=== PATIENT | male | born 1960 | race Caucasian/White ===

== ENCOUNTER → 2018-06-02 12:17 | Outpatient (CLI) | payer BC, SELFPAY ==
--- NOTE | 2018-06-02 | DI.MRI.S_ITS ---
PROCEDURE: MR LUMBAR SPINE WO CON INDICATIONS: LOW BACK PAIN AT MULTIPLE SITES TECHNIQUE: Noncontrast sagittal T1 spin echo and T2 fast echo, sagittal STIR, axial T1 and T2 fast spin echo through the lumbar spine. In cases with scoliosis, additional coronal T2 fast spin echo may be performed. COMPARISON: None. FINDINGS: Image quality: Excellent. Alignment and Curvature: No plain films are available for comparison, for numbering purposes. Thus, for the purposes of this examination, 5 lumbar type vertebral bodies will be presumed, as denoted on the montage panel. This should be confirmed and correlated with plain films, prior to any lumbar spinal intervention. There is loss of normal lumbar lordosis. There is mild grade 1 retrolisthesis of L2 on L3, L4 on L5, and L5 on S1. Bone Marrow: Marrow is of normal overall signal. L2 hemangioma is present. No acute vertebral body compression fractures. There is moderate reactive signal within the endplates adjacent to the the L3-L4 intervertebral disc. Spinal Cord: Conus medullaris terminates at the upper L1 level. Visualized cord demonstrates normal signal and size. Paraspinous Soft Tissues: No paravertebral masses. L1-L2: Mild disc height loss and desiccation. Mild diffuse disc bulge. Mild facet and uncovertebral hypertrophy. Mild epidural lipomatosis. Moderate canal stenosis. Mild bilateral foraminal stenosis. L2-L3: Moderate disc height loss and desiccation. Mild diffuse disc bulge. Moderate facet and ligamentum flavum hypertrophy. Mild epidural lipomatosis. Severe canal stenosis. Mild bilateral foraminal stenosis. L3-L4: Moderate disc height loss and desiccation. Moderate diffuse disc bulge/osteophyte. Mild facet and ligamentum hypertrophy. Mild epidural lipomatosis. Moderate to severe canal stenosis. Moderate foraminal stenosis bilaterally. L4-L5: Mild disc height loss and desiccation. Mild diffuse disc bulge. Mild facet and ligamentum flavum hypertrophy. Mild epidural lipomatosis. Mild canal stenosis. Severe bilateral foraminal stenosis, right greater than left. Mild flattening deformity of the bilateral L4 nerve roots within the neural foramina. L5-S1: Moderate disc height loss. Mild disc desiccation. Mild diffuse disc bulge. Mild facet hypertrophy. Mild canal stenosis. Moderate foraminal stenosis bilaterally. IMPRESSION: 1. 5 lumbar type vertebral bodies were presumed for the current report. Plain films of the lumbar spine are recommended for confirmation, prior to any lumbar spinal intervention. 2. Multilevel degenerative disc and facet disease, as well as ligamentum flavum hypertrophy and epidural lipomatosis. 3. Multilevel canal stenoses, worst at L2-L3 and L3-L4 as described above. 4. Multilevel foraminal stenoses, worst at L4-L5 bilaterally, where there is bilateral intraforaminal L4 nerve root flattening. Recommend correlation with clinical symptoms to ascertain relevance of this finding. Dictated by: Skye Diallo M.D. on 06/02/2018 at 13:52 Approved by: Skye Diallo M.D. on 06/02/2018 at 13:56
== END ==
PROVIDERS: Visit Provider Physical Medicine & Rehabilitation
DX: M51.36 Other intervertebral disc degeneration, lumbar region (principal); M51.37 Other intervertebral disc degeneration, lumbosacral region; M48.061 Spinal stenosis, lumbar region without neurogenic claudication; M48.07 Spinal stenosis, lumbosacral region; M54.5 Low back pain; E88.2 Lipomatosis, not elsewhere classified
CPT/HCPCS: 72148

== ENCOUNTER → 2019-06-21 13:48 | Outpatient (CLI) | payer BC, SELFPAY ==
[2019-06-21 14:43] LABS: Add Manual Diff / Slide Review NO; Basophils Absolute Auto 0 /uL (0-100); Basophils Percent Auto 0.8 % (0-2); Eosinophils Absolute Auto 100 /uL (0-450); Eosinophils Percent Auto 2.4 % (2-4); Hematocrit 43.4 % (41-53); Lymphocytes Absolute Auto 1300 /uL (1100-4500); Lymphocytes Percent Auto 31.7 % (25-40); Mean Corpuscular HGB Conc 34.5 % (30-36); Mean Corpuscular Hemoglobin 31.8 PG (26-34); Mean Corpuscular Volume 92.2 fL (80-100); Monocytes Absolute Auto 500 /uL (0-900); Monocytes Percent Auto 11.7 % (3-14); Neutrophils Absolute Auto 2200 /uL (1500-7000); Neutrophils Percent Auto 53.4 % (50-75); Platelet Count 174 X10^3/uL (150-400); Red Blood Cell Count 4.71 X10^6/uL (4.5-5.9); Red Cell Distribution Width 12.9 % (11.6-14.8); White Blood Cell Count 4.2 X10^3/uL (4.5-11.0)
[2019-06-21 15:30] LABS: Alanine Aminotransferase 18 IU/L (<50); Albumin 4.1 g/dL (3.5-5.0); Albumin Globulin Ratio 1.9 (1.0-2.8); Alkaline Phosphatase 89 U/L (38-126); Aspartate Aminotransferase 20 IU/L (17-59); Bilirubin Total 0.7 mg/dL (0.2-1.3); Bilirubin Unconjugated 0.5 mg/dL (0.0-1.1); Globulin 2.2 g/dL (1.7-4.1); HEMOLYSIS < 15 (0-50); Total Protein 6.3 g/dL (6.3-8.2)
== END ==
PROVIDERS: Visit Provider Podiatrist
DX: B35.1 Tinea unguium (principal)
CPT/HCPCS: 36415; 80076; 85025

== ENCOUNTER → 2021-09-12 11:21 | Outpatient (CLI) | payer BC, SELFPAY ==
--- NOTE | 2021-09-12 11:21 | DI.MRI.S_ITS ---
PROCEDURE: MR LUMBAR SPINE WO CON INDICATIONS: Spinal stenosis, lumbar region without neurogenic TECHNIQUE: Noncontrast sagittal T1 spin echo and T2 fast echo, sagittal STIR, axial T1 and T2 fast spin echo through the lumbar spine. In cases with scoliosis, additional coronal T2 fast spin echo may be performed. COMPARISON: [facility], MR, MR LUMBAR SPINE WO CON, 06/02/2018, 12:49. FINDINGS: Image quality: Excellent. Alignment and Curvature: There is normal bony alignment. Bone Marrow: Modic type 1 edematous endplate changes noted at L1-2, new from the prior exam. L1 Schmorl's node associated with the inferior endplate. Chronic endplate changes noted at L3-4, stable. Spinal Cord: Conus medullaris terminates at the L1 level. Visualized cord demonstrates normal signal and size. Paraspinous Soft Tissues: No paravertebral masses. T12-L1: Normal appearance. L1-L2: Circumferential disc bulge associated with mild central stenosis. Moderate bilateral foraminal stenosis L2-L3: Circumferential disc bulge and hypertrophic ligamentum flavum results in moderate central and mild bilateral foraminal stenosis. L3-L4: Disc space narrowing with circumferential disc bulge and hypertrophic facet joints results in effacement of the right lateral recess. Moderate central stenosis with moderate bilateral foraminal stenosis, left greater than right L4-L5: Mild disc space narrowing with circumferential disc bulge and hypertrophic facet joints present. Mild central and moderate to severe bilateral foraminal stenosis L5-S1: Circumferential disc bulge and hypertrophic facet joints present. Moderate left and right foraminal stenosis present. No central stenosis. IMPRESSION: Multilevel degenerative disc disease and arthropathy results in varying degrees of central and foraminal stenosis including moderate central stenosis at L2-3 and L3-4. Modic type 1 degenerative endplate changes at L1-2 are new from the prior Approved by: Alex Blount M.D. on 09/13/2021 at 9:07
== END ==
PROVIDERS: PCP Internal Medicine; Referring Provider Physical Medicine & Rehabilitation; Visit Provider Physical Medicine & Rehabilitation
DX: M51.36 Other intervertebral disc degeneration, lumbar region (principal); M47.816 Spondylosis without myelopathy or radiculopathy, lumbar region; M48.061 Spinal stenosis, lumbar region without neurogenic claudication
CPT/HCPCS: 72148

== ENCOUNTER → 2023-12-29 10:06 | Outpatient (CLI) | payer MEDICARE, OTHER, SELFPAY ==
--- NOTE | 2023-12-29 10:08 | DI.RAD.S_ITS ---
PROCEDURE: XR CERVICAL SPINE 2V OR 3V INDICATIONS: b/l arm numbness x 4 weeks TECHNIQUE: 3 view(s) of the cervical spine were acquired. COMPARISON: None. FINDINGS: Bones: No fractures or dislocations to the T1 level. The lateral masses of C1 appear intact on the odontoid view. No suspicious bony lesions. Straightening of cervical lordosis which may be due to patient positioning and/or concurrent muscle spasms. Moderate multilevel cervical spondylitic change. Soft tissues: No prevertebral soft tissue swelling. IMPRESSION: Cervical spine without acute fracture. Moderate multilevel cervical spondylosis. Mild straightening of normal cervical lordosis likely related to positioning and/or concurrent muscle spasms. Dictated by: Quirino Dos Santos M.D. on 12/29/2023 at 17:10 Approved by: Quirino Dos Santos M.D. on 12/29/2023 at 17:11
[2023-12-29 11:03] LABS: Add Manual Diff / Slide Review NO; Basophils Absolute Auto 0 /uL (0-100); Basophils Percent Auto 1.1 % (0-2); Eosinophils Absolute Auto 100 /uL (0-450); Eosinophils Percent Auto 4.1 % (2-4); Hematocrit 41.9 % (41-53); Hemoglobin 14.3 g/dL (13.5-17.5); Lymphocytes Absolute Auto 1100 /uL (1100-4500); Lymphocytes Percent Auto 32.8 % (25-40); Mean Corpuscular HGB Conc 34.1 % (30-36); Mean Corpuscular Hemoglobin 31.4 PG (26-34); Monocytes Absolute Auto 400 /uL (0-900); Monocytes Percent Auto 11.4 % (3-14); Neutrophils Absolute Auto 1700 /uL (1500-7000); Neutrophils Percent Auto 50.6 % (50-75); Platelet Count 172 X10^3/uL (150-400); Red Blood Cell Count 4.55 X10^6/uL (4.5-5.9); White Blood Cell Count 3.4 X10^3/uL (4.5-11.0)
[2023-12-29 11:28] LABS: Alanine Aminotransferase 33 IU/L (<50); Albumin 4.1 g/dL (3.5-5.0); Albumin Globulin Ratio 1.9 (1.0-2.8); Alkaline Phosphatase 89 U/L (38-126); Aspartate Aminotransferase 31 IU/L (17-59); BUN Creatinine Ratio 15.7 (6-22); Bilirubin Total 0.9 mg/dL (0.2-1.3); Blood Urea Nitrogen 14 mg/dL (9-20); Calcium 8.9 mg/dL (8.4-10.2); Carbon Dioxide 30 mmol/L (22-32); Chloride 108 mmol/L (98-107); Cholesterol 165 mg/dL (140-199); Estimated Glomerular Filt Rate > 60 mL/min (>60); Globulin 2.2 g/dL (1.7-4.1); Glucose 96 mg/dL (80-110); HDL Cholesterol 49 mg/dL (40-60); HEMOLYSIS < 15 (0-50); LDL Cholesterol Calculated 72 mg/dL (<100); Potassium 4.3 mmol/L (3.4-5.1); Sodium 141 mmol/L (137-145); Total Protein 6.3 g/dL (6.3-8.2); Triglycerides 221 mg/dL (35-150)
[2023-12-29 11:56] LABS: Prostate Specific Antigen Scrn 0.537 ng/mL (0.1-4.0)
[2023-12-29 11:57] LABS: TSH w/ Reflex to FT4 1.87 uIU/mL (0.47-4.68)
[2023-12-29 12:14] LABS: Vitamin B12 378 pg/mL (239-931)
== END ==
PROVIDERS: PCP Internal Medicine; Referring Provider Physician Assistant; Visit Provider Physician Assistant
DX: M47.812 Spondylosis without myelopathy or radiculopathy, cervical region (principal); G62.9 Polyneuropathy, unspecified; G47.19 Other hypersomnia; E78.2 Mixed hyperlipidemia; Z12.5 Encounter for screening for malignant neoplasm of prostate
CPT/HCPCS: 36415; 72040; 80053; 80061; 82607; 84443; 85025; G0103

== ENCOUNTER → 2024-02-21 13:38 | Outpatient (CLI) | payer MEDICARE, OTHER, SELFPAY ==
--- NOTE | 2024-02-21 13:39 | DI.RAD.S_ITS ---
PROCEDURE: XR CHEST 2V INDICATIONS: recent pneumonia 02/11, continues coughing TECHNIQUE: 2 views of the chest were acquired. COMPARISON: None. FINDINGS: Surgical changes and devices: None. Lungs and pleura: There bibasilar hazy opacities. There is peribronchial cuffing. No pleural effusions or pneumothorax. Mediastinum: Mediastinal contours are normal. Heart size is normal. Bones and chest wall: No suspicious bony abnormalities. Soft tissues appear unremarkable. IMPRESSION: 1. There are bibasilar hazy opacities. Differentials include infiltrates versus atelectasis. 2. There is peribronchial cuffing. This finding can be seen in small airways disease such as bronchiolitis or asthma. Dictated by: Chauncey Hood M.D. on 02/21/2024 at 15:33 Approved by: Chauncey Hood M.D. on 02/21/2024 at 15:38
== END ==
PROVIDERS: PCP Internal Medicine; Referring Provider Physician Assistant; Visit Provider Physician Assistant
DX: J18.9 Pneumonia, unspecified organism (principal)
CPT/HCPCS: 71046

== ENCOUNTER 2024-07-17 12:56 | Emergency (ER) | payer MEDICARE, OTHER, SELFPAY ==
[2024-07-17] VITALS (22 sets, daily range): BP systolic 135–169; BP diastolic 76–94; PULSE 51–58; RESP 16–18; TEMP 36.2; O2SAT 91–99; BMI 34.9
[2024-07-17 14:01] LABS: Add Manual Diff / Slide Review NO; Basophils Absolute Auto 0 /uL (0-100); Basophils Percent Auto 0.3 % (0-2); Eosinophils Absolute Auto 0 /uL (0-450); Eosinophils Percent Auto 0.6 % (2-4); Hematocrit 43.8 % (41-53); Hemoglobin 14.8 g/dL (13.5-17.5); Lymphocytes Absolute Auto 800 /uL (1100-4500); Lymphocytes Percent Auto 11.1 % (25-40); Mean Corpuscular HGB Conc 33.7 % (30-36); Mean Corpuscular Hemoglobin 31.4 PG (26-34); Mean Corpuscular Volume 93.1 fL (80-100); Monocytes Absolute Auto 400 /uL (0-900); Monocytes Percent Auto 6.1 % (3-14); Neutrophils Absolute Auto 5700 /uL (1500-7000); Neutrophils Percent Auto 81.9 % (50-75); Platelet Count 160 X10^3/uL (150-400); Red Cell Distribution Width 13.2 % (11.6-14.8)
[2024-07-17 14:15] LABS: Alanine Aminotransferase 22 IU/L (<50); Albumin 4.1 g/dL (3.5-5.0); Albumin Globulin Ratio 1.6 (1.0-2.8); Alkaline Phosphatase 89 U/L (38-126); Aspartate Aminotransferase 26 IU/L (17-59); BUN Creatinine Ratio 18.7 (6-22); Bilirubin Total 0.8 mg/dL (0.2-1.3); Blood Urea Nitrogen 17 mg/dL (9-20); Calcium 9.1 mg/dL (8.4-10.2); Carbon Dioxide 29 mmol/L (22-32); Chloride 106 mmol/L (98-107); Estimated Glomerular Filt Rate > 60 mL/min (>60); Globulin 2.5 g/dL (1.7-4.1); Glucose 110 mg/dL (80-110); HEMOLYSIS < 15 (0-50); Lipase 32 U/L (23-300); Potassium 4.2 mmol/L (3.4-5.1); Sodium 139 mmol/L (137-145); Total Protein 6.6 g/dL (6.3-8.2)
[2024-07-17] MEDS: ONDANSETRON 4 MG/2 ML INJ IV ×2 (14:15→16:29)
--- NOTE | 2024-07-17 14:32 | DI.MRI.S_ITS ---
PROCEDURE: MR HEAD/BRAIN WO/W CON INDICATIONS: headache w/ neuro changes TECHNIQUE: Noncontrast axial T1 spin echo, axial T2 fast spin echo, sagittal and axial FLAIR, coronal T2 fast spin echo, axial gradient echo, axial diffusion and ADC through the brain. After the administration of contrast, axial and coronal and sagittal 3D VIBE or T1 spin echo with fat saturation through the brain. COMPARISON: None. FINDINGS: Image quality: Excellent. CSF Spaces: Basal cisterns are patent. No extra-axial fluid collections. Ventricles demonstrate effacement of the frontal horns as well as mild effacement of the posterior right temporal horn. Brain: There is a heterogeneously enhancing mass within the right frontal lobe measuring 5.2 x 4.9 x 4.1 cm. Prominent vasogenic edema is present. It is causing right to left midline shift measuring 9 mm. Areas hypointensity on gradient sequence are present. The brainstem appears normal. Diffusion-weighted images demonstrate no acute infarct. No chronic ischemic insults. Normal intravascular flow voids are present. Skull and face: Calvarial marrow is normal in signal. Orbits appear normal. Sinuses: Sinuses and mastoids appear clear. IMPRESSION: Prominent appearing right frontal mass with vasogenic edema and midline shift demonstrating contrast enhancement hemosiderin/blood product deposition highly concerning for malignancy such as GBM. Dictated by: Barbara Vega M.D. on 07/17/2024 at 15:17 Approved by: Barbara Vega M.D. on 07/17/2024 at 15:20
[2024-07-17] MEDS: LORazepam 2 MG/ML INJ 1 MG IV (14:41)
--- NOTE | 2024-07-17 14:42 | PC.NURSE ---
In need of urgent CT, unavailable at this facility. MRI ordered. Medicated for nausea / anxiety
--- NOTE | 2024-07-17 15:35 | EKG_ITS ---
[place] [id number] [place] [id number] Test Date: 2024-07-17 Pat Name: Dani Becerra Department: [facility] Room: Gender: Male [employer]: HOSSEIN : 1960 Requested By: Order Number: [id number] Reading MD: Eron Reynolds Measurements Intervals [place] Rate: 52 P: 36 NV: 186 QRS: 1 QRSD: 94 T: 13 QT: 448 QTc: 416 Interpretive Statements Sinus bradycardia Septal infarct , age undetermined Electronically Signed On 07-17-2024 19:43:51 PST by Eron Reynolds
--- NOTE | 2024-07-17 16:18 | ED_ITS ---
HPI - Headache <Justin Luevano MD - Last Filed: 07/27/24 12:52> General Chief Complaint: Headache Stated Complaint: neuro issues, confussion, sent by [facility] [place] Time Seen by Provider: 07/17/24 16:09 Mode of arrival: Family Vehicle History of Present Illness HPI Narrative: Patient here with and daughter. Complaints 2 weeks of headache nausea and feeling off balance. Nausea but no vomiting. No recent illness. No fever chills cough cold or congestion. Has had episodes of feeling confused. No seizures. No urinary bladder incontinence. Related Data Home Medications Medication Instructions Recorded Confirmed cyclobenzaprine 10 mg tablet 10 mg PO TID PRN 04/09/21 06/13/24 pregabalin 75 mg capsule 75 mg PO BID 04/09/21 06/13/24 cetirizine 10 mg capsule (Zyrtec) 10 mg PO DAILY PRN 06/13/24 06/13/24 fluticasone propionate 50 1 spray intranasal DAILY 06/13/24 06/13/24 mcg/actuation nasal spray,suspension (Flonase Allergy Relief) probiotic PO DAILY 06/13/24 Previous Rx's Medication Instructions Recorded atorvastatin 20 mg tablet 20 mg PO DAILY #90 tabs 04/06/24 Allergies Allergy/AdvReac Type Severity Reaction Status Date / Time No Known Drug Allergies Allergy Verified 07/17/24 13:41 Review of Systems <Justin Luevano MD - Last Filed: 07/27/24 12:52> Review of Systems Narrative: GENERAL: Negative chills, fatigue, malaise, fever, sweats. HEENT: Negative sinus pain, ear pain, sore throat RESPIRATORY: Negative dyspnea, cough CARDIOVASCULAR: Negative chest pain, palpitations GASTROINTESTINAL: Negative nausea, vomiting, abdominal pain : Negative dysuria, frequency, hematuria MUSCULOSKELETAL: Negative muscle or bony pain SKIN: Negative rash, skin lesions NEUROLOGIC: Negative weakness, numbness, positive headache, positive dizziness ROS Unobtainable: All systems reviewed & are unremarkable except as noted in HPI and below Patient History <Justin Luevano MD - Last Filed: 07/27/24 12:52> Medical History Osteoarthritis of right hip Hyperplastic polyp of large intestine (01/13/16) Mixed hyperlipidemia Plantar warts (~1964) Sleep apnea Allergies Chronic back pain (~1973) Kidney stones (~1991) Surgical History S/P T&A (status post tonsillectomy and adenoidectomy) History of repair of anterior cruciate ligament of left knee (~2005) Social History Smoking Status: Never smoker Smoking Status: Never smoker Exam <Justin Luevano MD - Last Filed: 07/27/24 12:52> Narrative Exam Narrative: GENERAL: in no distress, not toxic not dyspneic HEAD: Normocephalic. EYES: Pupils equal round no papilledema no photophobia ENT: Mucous membranes moist. NECK: Trachea midline. CARDIOVASCULAR: Regular rate and rhythm RESPIRATORY: Clear to auscultation. Breath sounds equal bilaterally. No wheezes, rales, or rhonchi. GASTROINTESTINAL: Abdomen soft, non-tender EXTREMITIES: No gross deformities. BACK: No flank tenderness. NEURO: AOx4. 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 SKIN: Warm and dry PSYCH: Not anxious, is cooperative Initial Vital Signs Initial Vital Signs: Vital Signs Temperature 97.1 F L 07/17/24 13:38 Pulse Rate 56 L 07/17/24 13:38 Respiratory Rate 16 07/17/24 13:38 Blood Pressure 169/94 H 07/17/24 13:38 Pulse Oximetry 99 07/17/24 13:38 Oxygen Delivery Method Room Air 07/17/24 13:38 <Di Pearl MD - Last Filed: 07/18/24 06:15> Initial Vital Signs Initial Vital Signs: Vital Signs Temperature 97.1 F L 07/17/24 13:38 Pulse Rate 56 L 07/17/24 13:38 Respiratory Rate 16 07/17/24 13:38 Blood Pressure 169/94 H 07/17/24 13:38 Pulse Oximetry 99 07/17/24 13:38 Oxygen Delivery Method Room Air 07/17/24 13:38 <Dani Brooke DO - Last Filed: 07/19/24 17:12> Initial Vital Signs Initial Vital Signs: Vital Signs Temperature 97.1 F L 07/17/24 13:38 Pulse Rate 56 L 07/17/24 13:38 Respiratory Rate 16 07/17/24 13:38 Blood Pressure 169/94 H 07/17/24 13:38 Pulse Oximetry 99 07/17/24 13:38 Oxygen Delivery Method Room Air 07/17/24 13:38 Course <Justin Luevano MD - Last Filed: 07/27/24 12:52> Orders Ordered: Discontinued Medications Atorvastatin Calcium (Atorvastatin 20 Mg Tablet) 20 mg PO DAILY [facility] Last Admin: 07/19/24 08:17 Dose: 20 mg Documented By: Admin: 07/18/24 10:32 Dose: 20 mg Documented By: DWIGHT Dexamethasone (Dexamethasone 10 Mg/Ml Vial) 8 mg IV BID [facility] Last Admin: 07/19/24 08:35 Dose: 8 mg Documented By: Admin: 07/18/24 22:00 Dose: 8 mg Documented By: Admin: 07/18/24 08:18 Dose: 8 mg Documented By: Admin: 07/17/24 20:34 Dose: 8 mg Documented By: JIN Levetiracetam 1,000 mg/ Sodium (Chloride) 110 mls @ 440 mls/hr IV NOW ONE Stop: 07/17/24 16:19 Last Infusion: 07/17/24 16:59 Dose: Infused Documented By: Admin: 07/17/24 16:33 Dose: 440 mls/hr Documented By: JIN Levetiracetam 1,000 mg/ Sodium (Chloride) 110 mls @ 440 mls/hr IV NOW ONE Stop: 07/18/24 06:16 Last Infusion: 07/18/24 07:06 Dose: Infused Documented By: Admin: 07/18/24 06:34 Dose: 440 mls/hr Documented By: HAFSA(2) Levetiracetam 1,000 mg/ Sodium (Chloride) 110 mls @ 440 mls/hr IV Q12H [facility] Last Infusion: 07/19/24 12:47 Dose: Infused Documented By: Admin: 07/19/24 11:46 Dose: 440 mls/hr Documented By: Infusion: 07/19/24 00:56 Dose: Infused Documented By: HAFSA(2) Admin: 07/19/24 00:24 Dose: 440 mls/hr Documented By: Lorazepam (Lorazepam 2 Mg/Ml Inj) 1 mg IV NOW ONE Stop: 07/17/24 14:38 Last Admin: 07/17/24 14:41 Dose: 1 mg Documented By: NÉSTOR Morphine Sulfate (Morphine 4 Mg/Ml Inj) 4 mg IV NOW ONE Stop: 07/17/24 16:19 Last Admin: 07/17/24 16:28 Dose: 4 mg Documented By: JIN Morphine Sulfate (Morphine 4 Mg/Ml Inj) 4 mg IV NOW ONE Stop: 07/17/24 18:25 Last Admin: 07/17/24 18:44 Dose: 4 mg Documented By: MONSE Morphine Sulfate (Morphine 2 Mg/Ml Inj) 2 mg IV Q4HR PRN PRN Reason: Pain, Moderate (4-6) Last Admin: 07/19/24 18:03 Dose: 2 mg Documented By: Admin: 07/18/24 12:22 Dose: 2 mg Documented By: Admin: 07/18/24 06:34 Dose: 2 mg Documented By: HAFSA(2) Admin: 07/18/24 00:49 Dose: 2 mg Documented By: DARWIN Naloxone HCl (Naloxone 0.4 Mg/Ml Vial) 0.2 mg IV Q2MIN PRN PRN Reason: Opiate Reversal Ondansetron HCl (Ondansetron 4 Mg/2 Ml Inj) 4 mg IV NOW PRN PRN Reason: Nausea And Vomiting Last Admin: 07/19/24 12:16 Dose: 4 mg Documented By: Admin: 07/17/24 14:15 Dose: 4 mg Documented By: JIN Ondansetron HCl (Ondansetron 4 Mg Odt) 4 mg PO NOW PRN PRN Reason: Nausea And Vomiting Ondansetron HCl (Ondansetron 4 Mg/2 Ml Inj) 4 mg IV NOW ONE Stop: 07/17/24 16:19 Last Admin: 07/17/24 16:29 Dose: 4 mg Documented By: JIN Ondansetron HCl (Ondansetron 4 Mg/2 Ml Inj) 4 mg IV Q6HR [facility] Last Admin: 07/19/24 18:03 Dose: 4 mg Documented By: Admin: 07/19/24 13:08 Dose: Not Given Documented By: Admin: 07/19/24 07:02 Dose: Not Given Documented By: Admin: 07/19/24 00:00 Dose: Not Given Documented By: Admin: 07/18/24 20:00 Dose: Not Given Documented By: Admin: 07/18/24 12:20 Dose: 4 mg Documented By: Admin: 07/18/24 06:34 Dose: 4 mg Documented By: HAFSA(2) Admin: 07/18/24 00:09 Dose: 4 mg Documented By: DARWIN Pantoprazole Sodium (Pantoprazole 40 Mg Vial) 40 mg IV DAILY [facility] Last Admin: 07/19/24 08:34 Dose: 40 mg Documented By: Admin: 07/18/24 08:18 Dose: 40 mg Documented By: DWIGHT Pregabalin (Pregabalin 75 Mg Capsule) 75 mg PO DAILY [facility] Last Admin: 07/19/24 08:17 Dose: 75 mg Documented By: Admin: 07/18/24 10:31 Dose: 75 mg Documented By: DWIGHT Prochlorperazine (Prochlorperazine 10 Mg/2 Ml Vial) 10 mg IV NOW ONE Stop: 07/17/24 18:25 Last Admin: 07/17/24 18:44 Dose: 10 mg Documented By: MONSE Vital Signs Vital signs: Vital Signs - 8 hr 07/19/24 09:40 07/19/24 16:35 Temperature 97.6 F Pulse Rate 51 L 54 L Respiratory Rate 16 Blood Pressure 121/68 120/79 Pulse Oximetry 96 97 Oxygen Delivery Method Room Air <Di Pearl MD - Last Filed: 07/18/24 06:15> Orders Ordered: Discontinued Medications Atorvastatin Calcium (Atorvastatin 20 Mg Tablet) 20 mg PO DAILY [facility] Last Admin: 07/19/24 08:17 Dose: 20 mg Documented By: Admin: 07/18/24 10:32 Dose: 20 mg Documented By: DWIGHT Dexamethasone (Dexamethasone 10 Mg/Ml Vial) 8 mg IV BID [facility] Last Admin: 07/19/24 08:35 Dose: 8 mg Documented By: Admin: 07/18/24 22:00 Dose: 8 mg Documented By: Admin: 07/18/24 08:18 Dose: 8 mg Documented By: Admin: 07/17/24 20:34 Dose: 8 mg Documented By: JIN Levetiracetam 1,000 mg/ Sodium (Chloride) 110 mls @ 440 mls/hr IV NOW ONE Stop: 07/17/24 16:19 Last Infusion: 07/17/24 16:59 Dose: Infused Documented By: Admin: 07/17/24 16:33 Dose: 440 mls/hr Documented By: JIN Levetiracetam 1,000 mg/ Sodium (Chloride) 110 mls @ 440 mls/hr IV NOW ONE Stop: 07/18/24 06:16 Last Infusion: 07/18/24 07:06 Dose: Infused Documented By: Admin: 07/18/24 06:34 Dose: 440 mls/hr Documented By: HAFSA(2) Levetiracetam 1,000 mg/ Sodium (Chloride) 110 mls @ 440 mls/hr IV Q12H [facility] Last Infusion: 07/19/24 12:47 Dose: Infused Documented By: Admin: 07/19/24 11:46 Dose: 440 mls/hr Documented By: Infusion: 07/19/24 00:56 Dose: Infused Documented By: HAFSA(2) Admin: 07/19/24 00:24 Dose: 440 mls/hr Documented By: Lorazepam (Lorazepam 2 Mg/Ml Inj) 1 mg IV NOW ONE Stop: 07/17/24 14:38 Last Admin: 07/17/24 14:41 Dose: 1 mg Documented By: NÉSTOR Morphine Sulfate (Morphine 4 Mg/Ml Inj) 4 mg IV NOW ONE Stop: 07/17/24 16:19 Last Admin: 07/17/24 16:28 Dose: 4 mg Documented By: JIN Morphine Sulfate (Morphine 4 Mg/Ml Inj) 4 mg IV NOW ONE Stop: 07/17/24 18:25 Last Admin: 07/17/24 18:44 Dose: 4 mg Documented By: MONSE Morphine Sulfate (Morphine 2 Mg/Ml Inj) 2 mg IV Q4HR PRN PRN Reason: Pain, Moderate (4-6) Last Admin: 07/19/24 18:03 Dose: 2 mg Documented By: Admin: 07/18/24 12:22 Dose: 2 mg Documented By: Admin: 07/18/24 06:34 Dose: 2 mg Documented By: HAFSA(2) Admin: 07/18/24 00:49 Dose: 2 mg Documented By: DARWIN Naloxone HCl (Naloxone 0.4 Mg/Ml Vial) 0.2 mg IV Q2MIN PRN PRN Reason: Opiate Reversal Ondansetron HCl (Ondansetron 4 Mg/2 Ml Inj) 4 mg IV NOW PRN PRN Reason: Nausea And Vomiting Last Admin: 07/19/24 12:16 Dose: 4 mg Documented By: Admin: 07/17/24 14:15 Dose: 4 mg Documented By: JIN Ondansetron HCl (Ondansetron 4 Mg Odt) 4 mg PO NOW PRN PRN Reason: Nausea And Vomiting Ondansetron HCl (Ondansetron 4 Mg/2 Ml Inj) 4 mg IV NOW ONE Stop: 07/17/24 16:19 Last Admin: 07/17/24 16:29 Dose: 4 mg Documented By: JIN Ondansetron HCl (Ondansetron 4 Mg/2 Ml Inj) 4 mg IV Q6HR [facility] Last Admin: 07/19/24 18:03 Dose: 4 mg Documented By: Admin: 07/19/24 13:08 Dose: Not Given Documented By: Admin: 07/19/24 07:02 Dose: Not Given Documented By: Admin: 07/19/24 00:00 Dose: Not Given Documented By: Admin: 07/18/24 20:00 Dose: Not Given Documented By: Admin: 07/18/24 12:20 Dose: 4 mg Documented By: Admin: 07/18/24 06:34 Dose: 4 mg Documented By: HAFSA(2) Admin: 07/18/24 00:09 Dose: 4 mg Documented By: DARWIN Pantoprazole Sodium (Pantoprazole 40 Mg Vial) 40 mg IV DAILY [facility] Last Admin: 07/19/24 08:34 Dose: 40 mg Documented By: Admin: 07/18/24 08:18 Dose: 40 mg Documented By: DWIGHT Pregabalin (Pregabalin 75 Mg Capsule) 75 mg PO DAILY [facility] Last Admin: 07/19/24 08:17 Dose: 75 mg Documented By: Admin: 07/18/24 10:31 Dose: 75 mg Documented By: DWIGHT Prochlorperazine (Prochlorperazine 10 Mg/2 Ml Vial) 10 mg IV NOW ONE Stop: 07/17/24 18:25 Last Admin: 07/17/24 18:44 Dose: 10 mg Documented By: MONSE Vital Signs Vital signs: Vital Signs - 8 hr 07/19/24 09:40 07/19/24 16:35 Temperature 97.6 F Pulse Rate 51 L 54 L Respiratory Rate 16 Blood Pressure 121/68 120/79 Pulse Oximetry 96 97 Oxygen Delivery Method Room Air <Dani Brooke, DO - Last Filed: 07/19/24 17:12> Orders Ordered: Discontinued Medications Atorvastatin Calcium (Atorvastatin 20 Mg Tablet) 20 mg PO DAILY [facility] Last Admin: 07/19/24 08:17 Dose: 20 mg Documented By: Admin: 07/18/24 10:32 Dose: 20 mg Documented By: DWIGHT Dexamethasone (Dexamethasone 10 Mg/Ml Vial) 8 mg IV BID [facility] Last Admin: 07/19/24 08:35 Dose: 8 mg Documented By: Admin: 07/18/24 22:00 Dose: 8 mg Documented By: Admin: 07/18/24 08:18 Dose: 8 mg Documented By: Admin: 07/17/24 20:34 Dose: 8 mg Documented By: JIN Levetiracetam 1,000 mg/ Sodium (Chloride) 110 mls @ 440 mls/hr IV NOW ONE Stop: 07/17/24 16:19 Last Infusion: 07/17/24 16:59 Dose: Infused Documented By: Admin: 07/17/24 16:33 Dose: 440 mls/hr Documented By: JIN Levetiracetam 1,000 mg/ Sodium (Chloride) 110 mls @ 440 mls/hr IV NOW ONE Stop: 07/18/24 06:16 Last Infusion: 07/18/24 07:06 Dose: Infused Documented By: Admin: 07/18/24 06:34 Dose: 440 mls/hr Documented By: HAFSA(2) Levetiracetam 1,000 mg/ Sodium (Chloride) 110 mls @ 440 mls/hr IV Q12H [facility] Last Infusion: 07/19/24 12:47 Dose: Infused Documented By: Admin: 07/19/24 11:46 Dose: 440 mls/hr Documented By: Infusion: 07/19/24 00:56 Dose: Infused Documented By: HAFSA(2) Admin: 07/19/24 00:24 Dose: 440 mls/hr Documented By: Lorazepam (Lorazepam 2 Mg/Ml Inj) 1 mg IV NOW ONE Stop: 07/17/24 14:38 Last Admin: 07/17/24 14:41 Dose: 1 mg Documented By: NÉSTOR Morphine Sulfate (Morphine 4 Mg/Ml Inj) 4 mg IV NOW ONE Stop: 07/17/24 16:19 Last Admin: 07/17/24 16:28 Dose: 4 mg Documented By: JIN Morphine Sulfate (Morphine 4 Mg/Ml Inj) 4 mg IV NOW ONE Stop: 07/17/24 18:25 Last Admin: 07/17/24 18:44 Dose: 4 mg Documented By: MONSE Morphine Sulfate (Morphine 2 Mg/Ml Inj) 2 mg IV Q4HR PRN PRN Reason: Pain, Moderate (4-6) Last Admin: 07/19/24 18:03 Dose: 2 mg Documented By: Admin: 07/18/24 12:22 Dose: 2 mg Documented By: Admin: 07/18/24 06:34 Dose: 2 mg Documented By: HAFSA(2) Admin: 07/18/24 00:49 Dose: 2 mg Documented By: DARWIN Naloxone HCl (Naloxone 0.4 Mg/Ml Vial) 0.2 mg IV Q2MIN PRN PRN Reason: Opiate Reversal Ondansetron HCl (Ondansetron 4 Mg/2 Ml Inj) 4 mg IV NOW PRN PRN Reason: Nausea And Vomiting Last Admin: 07/19/24 12:16 Dose: 4 mg Documented By: Admin: 07/17/24 14:15 Dose: 4 mg Documented By: JIN Ondansetron HCl (Ondansetron 4 Mg Odt) 4 mg PO NOW PRN PRN Reason: Nausea And Vomiting Ondansetron HCl (Ondansetron 4 Mg/2 Ml Inj) 4 mg IV NOW ONE Stop: 07/17/24 16:19 Last Admin: 07/17/24 16:29 Dose: 4 mg Documented By: JIN Ondansetron HCl (Ondansetron 4 Mg/2 Ml Inj) 4 mg IV Q6HR [facility] Last Admin: 07/19/24 18:03 Dose: 4 mg Documented By: Admin: 07/19/24 13:08 Dose: Not Given Documented By: Admin: 07/19/24 07:02 Dose: Not Given Documented By: Admin: 07/19/24 00:00 Dose: Not Given Documented By: Admin: 07/18/24 20:00 Dose: Not Given Documented By: Admin: 07/18/24 12:20 Dose: 4 mg Documented By: Admin: 07/18/24 06:34 Dose: 4 mg Documented By: HAFSA(2) Admin: 07/18/24 00:09 Dose: 4 mg Documented By: DARWIN Pantoprazole Sodium (Pantoprazole 40 Mg Vial) 40 mg IV DAILY [facility] Last Admin: 07/19/24 08:34 Dose: 40 mg Documented By: Admin: 07/18/24 08:18 Dose: 40 mg Documented By: DWIGHT Pregabalin (Pregabalin 75 Mg Capsule) 75 mg PO DAILY [facility] Last Admin: 07/19/24 08:17 Dose: 75 mg Documented By: Admin: 07/18/24 10:31 Dose: 75 mg Documented By: DWIGHT Prochlorperazine (Prochlorperazine 10 Mg/2 Ml Vial) 10 mg IV NOW ONE Stop: 07/17/24 18:25 Last Admin: 07/17/24 18:44 Dose: 10 mg Documented By: MONSE Vital Signs Vital signs: Vital Signs - 8 hr 07/19/24 09:40 07/19/24 16:35 Temperature 97.6 F Pulse Rate 51 L 54 L Respiratory Rate 16 Blood Pressure 121/68 120/79 Pulse Oximetry 96 97 Oxygen Delivery Method Room Air MDM - Headache <Justin Luevano MD - Last Filed: 07/27/24 12:52> Lab Data 07/17/24 13:48 07/17/24 13:48 Labs: Lab Results 07/17/24 Range/Units 13:48 WBC 7.0 (4.5-11.0) X10^3/uL RBC 4.70 (4.5-5.9) X10^6/uL Hgb 14.8 (13.5-17.5) g/dL Hct 43.8 (41-53) % MCV 93.1 (80-100) fL MCH 31.4 (26-34) PG MCHC 33.7 (30-36) % RDW 13.2 (11.6-14.8) % Plt Count 160 (150-400) X10^3/uL Neut % (Auto) 81.9 H (50-75) % Lymph % (Auto) 11.1 L (25-40) % Luce % (Auto) 6.1 (3-14) % Eos % (Auto) 0.6 L (2-4) % Baso % (Auto) 0.3 (0-2) % Neut # (Auto) 5700 (9737-6476) /uL Lymph # (Auto) 800 L (8493-7377) /uL Luce # (Auto) 400 (0-900) /uL Eos # (Auto) 0 (0-450) /uL Baso # (Auto) 0 (0-100) /uL Sodium 139 (137-145) mmol/L Potassium 4.2 (3.4-5.1) mmol/L Chloride 106 (98-107) mmol/L Carbon Dioxide 29 (22-32) mmol/L BUN 17 (9-20) mg/dL Creatinine 0.91 (0.66-1.25) mg/dL Estimated GFR > 60 (>60) mL/min BUN/Creatinine Ratio 18.7 (6-22) Glucose 110 (80-110) mg/dL Calcium 9.1 (8.4-10.2) mg/dL Total Bilirubin 0.8 (0.2-1.3) mg/dL AST 26 (17-59) IU/L ALT 22 (<50) IU/L Alkaline Phosphatase 89 (38-126) U/L Total Protein 6.6 (6.3-8.2) g/dL Albumin 4.1 (3.5-5.0) g/dL Globulin 2.5 (1.7-4.1) g/dL Albumin/Globulin Ratio 1.6 (1.0-2.8) Lipase 32 (23-300) U/L Urine Dip Bedside Urine Glucose Negative Bedside Urine Bilirubin - Negative Bedside Urine Ketone +/- 5 Urine Specific [place] 1.015 Bedside Urine Occult Blood - Negative Bedside Urine pH 6 Bedside Urine Protein - Negative Bedside Urine Urobilinogen - Negative Bedside Urine Nitrite - Negative Bedside Urine Leukocytes - Negative Esterase Imaging Data MRI brain: Radiologist's Impression: [address] [address] Magnetic Resonance Report Signed Patient: Dani Becerra MR#: [id number] : 1960 Acct:[id number] Age/Sex: 64 / M Date of Service: 07/17/24 Loc: ED Accession Number: [id number] Procedure: MR head/brain wo/w con Ordering Provider: Justin Luevano MD PROCEDURE: MR HEAD/BRAIN WO/W CON INDICATIONS: headache w/ neuro changes TECHNIQUE: Noncontrast axial T1 spin echo, axial T2 fast spin echo, sagittal and axial FLAIR, coronal T2 fast spin echo, axial gradient echo, axial diffusion and ADC through the brain. After the administration of contrast, axial and coronal and sagittal 3D VIBE or T1 spin echo with fat saturation through the brain. COMPARISON: None. FINDINGS: Image quality: Excellent. CSF Spaces: Basal cisterns are patent. No extra-axial fluid collections. Ventricles demonstrate effacement of the frontal horns as well as mild effacement of the posterior right temporal horn. Brain: There is a heterogeneously enhancing mass within the right frontal lobe measuring 5.2 x 4.9 x 4.1 cm. Prominent vasogenic edema is present. It is causing right to left midline shift measuring 9 mm. Areas hypointensity on gradient sequence are present. The brainstem appears normal. Diffusion-weighted images demonstrate no acute infarct. No chronic ischemic insults. Normal intravascular flow voids are present. Skull and face: Calvarial marrow is normal in signal. Orbits appear normal. Sinuses: Sinuses and mastoids appear clear. IMPRESSION: Prominent appearing right frontal mass with vasogenic edema and midline shift demonstrating contrast enhancement hemosiderin/blood product deposition highly concerning for malignancy such as GBM. Dictated by: Barbara Vega M.D. on 07/17/2024 at 15:17 Approved by: Barbara Vega M.D. on 07/17/2024 at 15:20 [facility] Narrative Medical decision making narrative: Patient here with and daughter. Complaints 2 weeks of headache nausea and feeling off balance. Nausea but no vomiting. No recent illness. No fever chills cough cold or congestion. Has had episodes of feeling confused. No seizures. No urinary bladder incontinence. After history and exam CBC CMP MRI Neurosurgery consult [facility] Medical records reviewed: No recent visit for this complaint Differential considered: Includes but not limited to stroke normal pressure hydrocephalus brain tumor Lab Test results independently reviewed as above. Pertinent findings: WBC 7.0 hemoglobin 14.8 sodium 139 potassium 4.2 BUN 17 creatinine 0.91 Independently reviewed EKG EKG sinus rhythm sinus bradycardia rate 52 Imaging studies independently reviewed: MRI brain right frontal mass Consultations: 5:[address] [facility] neurosurgery Dr. Clemente, will accept patient at [facility]. Start Decadron 8 mg b.i.d.. Start Protonix, start Keppra Treatments: Ativan morphine Zofran Sahilppra Re-evaluations: 4:21 p.m.. Updated patient and and daughter results. Awaiting callback from [facility] neurosurgery services. May need to transfer tonight Updated patient and family at 5:30 p.m.. My discussion with Neurosurgery at [facility] and need for transfer. They do understand. Discussion: Appropriate for transfer higher level of care, will need surgical evaluation by neurosurgery. Patient and family agree and understand. Diagnosis: Brain mass Dr. Pearl - no events reported overnight. Morning doses of medications ordered. July 18, [address] Luevano. Sign-out from Dr. Pearl, no new events overnight. Morning medications will be given. 7:[address] Luevano. Patient in no distress. Patient is aware still waiting for bed availability at [facility]. at bedside. 12:00 p.m.. No new issues. Still waiting for bed assignment. 3:00 p.m.. Still no issues. Family understands still waiting for bed assignment. 7:[address] Luevano: Sign out to Dr. Pearl. Still no bed available. Patient is understanding. <Di Pearl MD - Last Filed: 07/18/24 06:15> Lab Data Labs: Lab Results 07/17/24 Range/Units 13:48 WBC 7.0 (4.5-11.0) X10^3/uL RBC 4.70 (4.5-5.9) X10^6/uL Hgb 14.8 (13.5-17.5) g/dL Hct 43.8 (41-53) % MCV 93.1 (80-100) fL MCH 31.4 (26-34) PG MCHC 33.7 (30-36) % RDW 13.2 (11.6-14.8) % Plt Count 160 (150-400) X10^3/uL Neut % (Auto) 81.9 H (50-75) % Lymph % (Auto) 11.1 L (25-40) % Luce % (Auto) 6.1 (3-14) % Eos % (Auto) 0.6 L (2-4) % Baso % (Auto) 0.3 (0-2) % Neut # (Auto) 5700 (0649-3208) /uL Lymph # (Auto) 800 L (4369-4207) /uL Luce # (Auto) 400 (0-900) /uL Eos # (Auto) 0 (0-450) /uL Baso # (Auto) 0 (0-100) /uL Sodium 139 (137-145) mmol/L Potassium 4.2 (3.4-5.1) mmol/L Chloride 106 (98-107) mmol/L Carbon Dioxide 29 (22-32) mmol/L BUN 17 (9-20) mg/dL Creatinine 0.91 (0.66-1.25) mg/dL Estimated GFR > 60 (>60) mL/min BUN/Creatinine Ratio 18.7 (6-22) Glucose 110 (80-110) mg/dL Calcium 9.1 (8.4-10.2) mg/dL Total Bilirubin 0.8 (0.2-1.3) mg/dL AST 26 (17-59) IU/L ALT 22 (<50) IU/L Alkaline Phosphatase 89 (38-126) U/L Total Protein 6.6 (6.3-8.2) g/dL Albumin 4.1 (3.5-5.0) g/dL Globulin 2.5 (1.7-4.1) g/dL Albumin/Globulin Ratio 1.6 (1.0-2.8) Lipase 32 (23-300) U/L Urine Dip Bedside Urine Glucose Negative Bedside Urine Bilirubin - Negative Bedside Urine Ketone +/- 5 Urine Specific [place] 1.015 Bedside Urine Occult Blood - Negative Bedside Urine pH 6 Bedside Urine Protein - Negative Bedside Urine Urobilinogen - Negative Bedside Urine Nitrite - Negative Bedside Urine Leukocytes - Negative Esterase [facility] Narrative Medical decision making narrative: Patient here with and daughter. Complaints 2 weeks of headache nausea and feeling off balance. Nausea but no vomiting. No recent illness. No fever chills cough cold or congestion. Has had episodes of feeling confused. No seizures. No urinary bladder incontinence. After history and exam CBC CMP MRI Neurosurgery consult [facility] Medical records reviewed: No recent visit for this complaint Differential considered: Includes but not limited to stroke normal pressure hydrocephalus brain tumor Lab Test results independently reviewed as above. Pertinent findings: WBC 7.0 hemoglobin 14.8 sodium 139 potassium 4.2 BUN 17 creatinine 0.91 Independently reviewed EKG EKG sinus rhythm sinus bradycardia rate 52 Imaging studies independently reviewed: MRI brain right frontal mass Consultations: 5:[address] [facility] neurosurgery Dr. Clemente, will accept patient at [facility]. Start Decadron 8 mg b.i.d.. Start Protonix, start Keppra Treatments: Ativan morphine Zofran Keppra Re-evaluations: 4:21 p.m.. Updated patient and and daughter results. Awaiting callback from [facility] neurosurgery services. May need to transfer tonight Updated patient and family at 5:30 p.m.. My discussion with Neurosurgery at [facility] and need for transfer. They do understand. Discussion: Appropriate for transfer higher level of care, will need surgical evaluation by neurosurgery. Patient and family agree and understand. Diagnosis: Brain mass Dr. Pearl - no events reported overnight. Morning doses of medications ordered. <Dani Brooke DO - Last Filed: 07/19/24 17:12> Lab Data Labs: Lab Results 07/17/24 Range/Units 13:48 WBC 7.0 (4.5-11.0) X10^3/uL RBC 4.70 (4.5-5.9) X10^6/uL Hgb 14.8 (13.5-17.5) g/dL Hct 43.8 (41-53) % MCV 93.1 (80-100) fL MCH 31.4 (26-34) PG MCHC 33.7 (30-36) % RDW 13.2 (11.6-14.8) % Plt Count 160 (150-400) X10^3/uL Neut % (Auto) 81.9 H (50-75) % Lymph % (Auto) 11.1 L (25-40) % Luce % (Auto) 6.1 (3-14) % Eos % (Auto) 0.6 L (2-4) % Baso % (Auto) 0.3 (0-2) % Neut # (Auto) 5700 (2509-5066) /uL Lymph # (Auto) 800 L (8826-9482) /uL Luce # (Auto) 400 (0-900) /uL Eos # (Auto) 0 (0-450) /uL Baso # (Auto) 0 (0-100) /uL Sodium 139 (137-145) mmol/L Potassium 4.2 (3.4-5.1) mmol/L Chloride 106 (98-107) mmol/L Carbon Dioxide 29 (22-32) mmol/L BUN 17 (9-20) mg/dL Creatinine 0.91 (0.66-1.25) mg/dL Estimated GFR > 60 (>60) mL/min BUN/Creatinine Ratio 18.7 (6-22) Glucose 110 (80-110) mg/dL Calcium 9.1 (8.4-10.2) mg/dL Total Bilirubin 0.8 (0.2-1.3) mg/dL AST 26 (17-59) IU/L ALT 22 (<50) IU/L Alkaline Phosphatase 89 (38-126) U/L Total Protein 6.6 (6.3-8.2) g/dL Albumin 4.1 (3.5-5.0) g/dL Globulin 2.5 (1.7-4.1) g/dL Albumin/Globulin Ratio 1.6 (1.0-2.8) Lipase 32 (23-300) U/L Urine Dip Bedside Urine Glucose Negative Bedside Urine Bilirubin - Negative Bedside Urine Ketone +/- 5 Urine Specific [place] 1.015 Bedside Urine Occult Blood - Negative Bedside Urine pH 6 Bedside Urine Protein - Negative Bedside Urine Urobilinogen - Negative Bedside Urine Nitrite - Negative Bedside Urine Leukocytes - Negative Esterase [facility] Narrative Medical decision making narrative: Patient here with and daughter. Complaints 2 weeks of headache nausea and feeling off balance. Nausea but no vomiting. No recent illness. No fever chills cough cold or congestion. Has had episodes of feeling confused. No seizures. No urinary bladder incontinence. After history and exam CBC CMP MRI Neurosurgery consult [facility] Medical records reviewed: No recent visit for this complaint Differential considered: Includes but not limited to stroke normal pressure hydrocephalus brain tumor Lab Test results independently reviewed as above. Pertinent findings: WBC 7.0 hemoglobin 14.8 sodium 139 potassium 4.2 BUN 17 creatinine 0.91 Independently reviewed EKG EKG sinus rhythm sinus bradycardia rate 52 Imaging studies independently reviewed: MRI brain right frontal mass Consultations: 5:[address] [facility] neurosurgery Dr. Clemente, will accept patient at [facility]. Start Decadron 8 mg b.i.d.. Start Protonix, start Keppra Treatments: Ativan morphine Zofran Keppra Re-evaluations: 4:21 p.m.. Updated patient and and daughter results. Awaiting callback from [facility] neurosurgery services. May need to transfer tonight Updated patient and family at 5:30 p.m.. My discussion with Neurosurgery at [facility] and need for transfer. They do understand. Discussion: Appropriate for transfer higher level of care, will need surgical evaluation by neurosurgery. Patient and family agree and understand. Diagnosis: Brain mass Dr. Pearl - no events reported overnight. Morning doses of medications ordered. July 18, [address] Luevano. Sign-out from Dr. Pearl, no new events overnight. Morning medications will be given. 7:[address] Luevano. Patient in no distress. Patient is aware still waiting for bed availability at [facility]. at bedside. 12:00 p.m.. No new issues. Still waiting for bed assignment. 3:00 p.m.. Still no issues. Family understands still waiting for bed assignment. 7:[address] Luevano: Sign out to Dr. Pearl. Still no bed available. Patient is understanding. 07/19/24 Dr brooke: Received turned over patient's history and physical exam. Patient has been receiving Decadron also Keppra. No focal neuro deficits. Has been ambulatory. Will plan with transfer to [facility]. Patient was stable for transport. Discharge Plan Departure Patient Disposition: [facility] Clinical Impression: Frontal mass of brain Prescriptions: No Action atorvastatin 20 mg tablet 20 mg PO DAILY Qty: 90 1RF Rx Instructions: ANNUAL/YEARLY APPT DUE 10/2024. PLEASE CALL TO SCHEDULE FUTURE APPT. THANKS 04/06/24. pregabalin 75 mg capsule 75 mg PO BID Patient Comments: TAKE 1 CAPSULE BY MOUTH TWICE DAILY cyclobenzaprine 10 mg tablet 10 mg PO TID PRN probiotic PO DAILY Zyrtec 10 mg capsule 10 mg PO DAILY PRN fluticasone propionate [Flonase Allergy Relief] 50 mcg/actuation spray,suspension 1 spray intranasal DAILY Rx Instructions: administer into each nostril Referrals: Andrés Hernandez MD [Primary Care Provider] -
[2024-07-17] MEDS: MORPHINE 4 MG/ML INJ IV ×2 (16:28→18:44)
[2024-07-17] MEDS: levETIRAcetam 1,000 MG in SODIUM CHLORIDE 0.9% 100 ML 440 MG IV (16:33)
--- NOTE | 2024-07-17 18:31 | PC.NURSE ---
[facility] for [facility]. placed in hospital bed. Upon transfer to wheelchair patient became dizzy, reports nausea and headache. Verbal orders from Dr Luevano for PRN pain and nausea meds
[2024-07-17] MEDS: PROCHLORPERAZINE 10 MG/2 ML VIAL IV (18:44)
[2024-07-17] MEDS: DEXAMETHASONE 10 MG/ML VIAL 8 MG IV (20:34)
[2024-07-18] VITALS (37 sets, daily range): BP systolic 108–135; BP diastolic 61–82; PULSE 50–65; RESP 16–18; O2SAT 91–96
[2024-07-18] MEDS: ONDANSETRON 4 MG/2 ML INJ IV ×3 (00:09→12:20)
--- NOTE | 2024-07-18 00:12 | PC.NURSE ---
Patient was incontinent of urine in the hospital bed. This nurse and Micaela SUMNER tech provided charanjit care and did a full bed change. Patient required 2 person max assist with standing and dressing/undressing. Patient back in bed. Provided warm blanker. Callight in reach. Patient's daughter at bedside.
[2024-07-18] MEDS: MORPHINE 2 MG/ML INJ IV ×3 (00:49→12:22)
[2024-07-18] MEDS: levETIRAcetam 1,000 MG in SODIUM CHLORIDE 0.9% 100 ML 440 MG IV (06:34)
[2024-07-18] MEDS: DEXAMETHASONE 10 MG/ML VIAL 8 MG IV ×2 (08:18→22:00)
[2024-07-18] MEDS: PANTOPRAZOLE 40 MG VIAL IV (08:18)
--- NOTE | 2024-07-18 08:25 | PC.NURSE ---
Pt a&ox4;. Answers all questions appropriately and pt maintains sense of humor. States that he is feeling very weak and having some numbness bilaterally in his LE. Dr Luevano ok with pt taking own 75mg lyrica and 20mg lipitor.
[2024-07-18] MEDS: PREGABALIN 75 MG CAPSULE PO (10:31)
[2024-07-18] MEDS: ATORVASTATIN 20 MG TABLET PO (10:32)
--- NOTE | 2024-07-18 10:49 | PC.NURSE ---
NIH done. Pt alert and responsive, answers all questions appropriately without aphasia or slurring of speech. Left-sided weakness with upper and lower extremity drift. Pt recently dx with new onset brain mass. Pt to transfer to .
--- NOTE | 2024-07-18 17:29 | PC.NURSE ---
at this time patient is not reporting any pain
[2024-07-19] MEDS: levETIRAcetam 1,000 MG in SODIUM CHLORIDE 0.9% 100 ML 440 MG IV ×2 (00:24→11:46)
[2024-07-19 01:04] VITALS: BP 124/74; PULSE 50; RESP 18; TEMP 36.2; O2SAT 95
--- NOTE | 2024-07-19 08:14 | PC.NURSE ---
07/19/24 called transfer center at 0815 and spoke with shankar for a bed assignment update. No update at this time. Was told they are updating their daily bed flow and should call back with an update soon. P:[phone] Spoke with: Shankar
[2024-07-19] MEDS: ATORVASTATIN 20 MG TABLET PO (08:17)
[2024-07-19] MEDS: PREGABALIN 75 MG CAPSULE PO (08:17)
[2024-07-19] MEDS: PANTOPRAZOLE 40 MG VIAL IV (08:34)
[2024-07-19] MEDS: DEXAMETHASONE 10 MG/ML VIAL 8 MG IV (08:35)
[2024-07-19 09:40] VITALS: BP 121/68; PULSE 51; RESP 16; TEMP 36.4; O2SAT 96
[2024-07-19] MEDS: ONDANSETRON 4 MG/2 ML INJ IV ×2 (12:16→18:03)
--- NOTE | 2024-07-19 14:22 | PC.NURSE ---
Called transfer center @[phone] and spoke with Sandra about bed status. No change or update at this time. Awaiting bed assignment.
[2024-07-19 16:35] VITALS: BP 120/79; PULSE 54; O2SAT 97
[2024-07-19] MEDS: MORPHINE 2 MG/ML INJ IV (18:03)
== END 2024-07-19 18:10 | disposition short-term general hospital (02) ==
PROVIDERS: Emergency Medicine; Emergency Provider Emergency Medicine; PCP Internal Medicine
DX: G93.89 Other specified disorders of brain (principal); R00.1 Bradycardia, unspecified
CPT/HCPCS: 36415; 70553; 80053; 81003; 83690; 85025; 93005; 96365; 96366; 96375; 96376; 99285; J0780; J1100; J1953; J2060; J2270; J2405; J2470